=== PATIENT | female | born 1965 | race African-American/Black ===

== ENCOUNTER 2022-05-01 08:10 | Emergency (ER) | payer MEDICARE ==
[~2022-05-01] VITALS: Ht 172.7 cm; Wt 173.3 kg
[~2022-05-01 08:10] MED LIST: ASPIRIN CHEWABL81 MG PO; ASPIRIN EC81 M1 PO; ATENOLOL25 MG PO; DUONEB 2.5-0.5M1 AMP NEB; HUMALOG MI100 UNIT/2 SQ; KLOR-CON 1010 MEQ PO; LASIX40 MG PO; LEVAQUIN750 MG PO; LOVAZA1 GM PO; MAGNESIUM250 MG PO; MUCINEX 600MG600 MG PO; NEURONTIN 400M400 MG PO; NORCO 7.5-3251 EACH PO; PRILOSEC20 MG PO; PROCARDIA XL60 MG PO; SINGULAIR10 MG PO; SYMBICORT 1601 PUFFS INH
[2022-05-01] MEDS ORDERED: BASAGLAR K100 UNIT/1 SC (08:22)
[2022-05-01] MEDS ORDERED: OZEMPIC1 MG/0.71 SC (08:23)
[2022-05-01] MEDS ORDERED: PREDNISONE 5MG T5 MG PO (08:24)
[2022-05-01] MEDS ORDERED: RHEUMATREX2.5 MG PO (08:24)
[2022-05-01] MEDS ORDERED: WELLBUTRIN XL150 MG PO (08:25)
[2022-05-01] MEDS ORDERED: INCRUSE ELLI62.5 MCG INH (08:26)
[2022-05-01] MEDS ORDERED: BREO ELLIPTA 11 EACH INH (08:26)
[2022-05-01] MEDS ORDERED: BACTRIM DS TAB1 EACH PO (09:07)
== END 2022-05-01 09:23 | disposition home or self-care (01) ==
LOC: FER 08:10
DX: L02.31 Cutaneous abscess of buttock (principal); I10 Essential (primary) hypertension; E11.9 Type 2 diabetes mellitus without complications; F17.210 Nicotine dependence, cigarettes, uncomplicated; Z88.1 Allergy status to other antibiotic agents
CPT/HCPCS: 87070; 87205